=== PATIENT | female | born 1990 | race Caucasian/White ===

== ENCOUNTER 2020-07-11 16:57 | Outpatient (CLI) | payer OTHER, SELFPAY ==
--- NOTE | ~2020-07-11 | XR_ITS ---
EXAMINATION: XR hip RT 2V w AP pelvis INDICATION: Right hip pain TECHNIQUE: AP view of the pelvis and two views of the right hip are obtained. COMPARISON: None available FINDINGS: Bone alignment is normal. There is no fracture. The soft tissues are unremarkable. Surgical changes are noted on the right at L5-S1. IMPRESSION: 1. No acute osseous abnormality. Reviewed, dictated and finalized at location [facility]. ING COORDINATOR
== END 2020-07-11 16:58 | disposition home or self-care (01) ==
PROVIDERS: PCP Physician Assistant; Visit Provider Physician Assistant
DX: M25.559 Pain in unspecified hip (principal)
CPT/HCPCS: 73502

== ENCOUNTER 2020-08-17 06:59 | Outpatient (NON) | payer OTHER, SELFPAY ==
[2020-08-17 22:42] LABS: SARS-CoV-2 RNA PCR Negative
== END 2020-08-17 07:00 ==
LOC: ANHCOVIDDT 06:59
PROVIDERS: PCP Physician Assistant; Visit Provider Physician Assistant
DX: Z20.822 Contact with and (suspected) exposure to COVID-19 (principal); B34.9 Viral infection, unspecified
CPT/HCPCS: C9803; U0003; U0005

== ENCOUNTER 2020-08-30 16:55 | Emergency (ER) | payer OTHER, SELFPAY ==
--- NOTE | ~2020-08-30 | CT_ITS ---
EXAMINATION: CT abdomen pelvis w con DATE: 08/30/2020 19:28 INDICATION: Abdominal pain TECHNIQUE: Computed tomography (CT) of the abdomen and pelvis was performed with 100 cc Omnipaque 350 intravenous contrast. Automated exposure control and iterative reconstruction technique were employe d. Exam dose: 1256.69 mGy-cm total exam DLP. COMPARISON: None. FINDINGS: Lung bases are clear of infiltrate or consolidation. Normal heart size. No pericardial or pleural effusion. The liver, gallbladder, bile ducts, spleen, pancreas, pancreatic duct and adrenal glands and kidneys are unremarkable. No urinary tract calculus or hydroureteronephrosis. Normal caliber of the abdominal aorta. No intraperitoneal or retroperitoneal or pelvic mass lesion or adenopathy or ascites. The urinary bladder, uterus and adnexal areas are unremarkable. Mild colonic diverticulosis; no CT evidence of diverticulitis. No bowel obstruction, bowel wall thick ening, pneumatosis or intraperitoneal free air. Small fat-containing umbilical hernia. Status post posterior surgical spinal fusion on the right at L5-S1. IMPRESSION: Mild colonic diverticulosis Status post posterior surgical spinal fusion at L5-S1 Reviewed, dictated and finalized at [facility]. Reviewed, dictated and finalized at location A. LLITE DISH REPAIRER
[2020-08-30 16:58] VITALS: BP 148/82; PULSE 125; RESP 20; TEMP 36.6; O2SAT 100
--- NOTE | 2020-08-30 17:06 | ED.ABDPAIN ---
HPI - Abdominal Pain General Chief Complaint: Abdominal Pain Stated Complaint: abd pain Time Seen by Provider: 08/30/20 17:04 Source: patient and family Mode of arrival: ambulatory Limitations: no limitations History of Present Illness HPI narrative: 30 years old white female presents with intermittent right upper quadrant pain started 2 weeks ago. Patient Was Made Today quickly and turned quickly and felt a pop at the right upper quadrant. Patient declined any pain medication at this time. Patient denies any fever, chills, nausea, vomiting, diarrhea, constipation, history of COVID-19 infection or exposure to anybody with COVID-19. History of intussusception when she was a baby, hysterectomy. Patient is a smoker, patient drinks occasionally and uses marijuana. Related Data Home Medications Medication Instructions Recorded Confirmed citalopram mg 08/30/20 08/30/20 clonazepam 08/30/20 lisinopril-hydrochlorothiazide tablet 08/30/20 quetiapine 08/30/20 tramadol mg 08/30/20 Allergies Allergy/AdvReac Type Severity Reaction Status Date / Time No Known Allergies Allergy Unknown Verified 08/30/20 17:00 Review of Systems Review of Systems: Narrative: CONSTITUTIONAL: Denies fever, chills, or sweats. EYES: Denies visual changes, redness, or discharge. ENT: Denies rhinorrhea, congestion, sore throat, or otalgia. CARDIOVASCULAR: Denies chest pain, palpitations, or edema. RESPIRATORY: Denies cough or dyspnea. GASTROINTESTINAL: Right upper quadrant pain GENITOURINARY: Denies dysuria or hematuria. SKIN: Denies rash or itching. MUSCULOSKELETAL: Denies back pain, joint pain, or myalgia. NEUROLOGIC: Denies headache, numbness, or weakness. PSYCHIATRIC: Denies anxiety or depression. Exam Narrative: Exam Narrative: General appearance: Well-developed, well-nourished Skin: Normal color Head: Normocephalic, nontraumatic Eyes: Clear conjunctiva ENT: Oropharynx normal, ears normal, nose normal Neck: Supple, nontender Chest and respiratory: Airway patent, no respiratory distress, no accessory muscle use Heart: Regular rate/rhythm Abdomen: Soft, diffuse tenderness to right upper quadrant, positive Brooks sign., no organomegaly, quiet bowel sounds Vascular: Normal peripheral pulses, normal capillary refill. 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 Labs, UA, CT abdomen and pelvis with IV contrast, IV fluid, ordered. Further plan to follow Differential Diagnosis Differential diagnosis: Likely abdominal pain, calculus of kidney, constipation, diverticulitis and small bowel obstruction Imaging Data Radiologist's impression: Impressions Abdomen/Pelvis CT 08/30/20 19:30 IMPRESSION: Mild colonic diverticulosis Status post posterior surgical spinal fusion at L5-S1 Critical Care Time Critical Care Time Critical Care Time: Yes Total Critical Care Time: 30 Discharge Plan Discharge Clinical Impression: Abdominal pain Qualifiers: Abdominal location: right upper
[2020-08-30 17:42] LABS: Basophils Absolute Auto 0.1 K/mm3 (0.0-0.1); Basophils Percent Auto 0.7 % (0.2-1.2); Eosinophils Absolute Auto 0.1 K/mm3 (0-0.3); Eosinophils Percent Auto 0.7 % (0-4.4); Hematocrit 45.1 % (37.0-47.0); Immature Granulocyte Absolute 0.02 K/mm3 (0.00-0.031); Immature Granulocyte Percent A 0.2 % (0-0.5); Lymphocytes Absolute Auto 3.46 K/mm3 (0.9-3.2); Lymphocytes Percent Auto 31.1 % (18.3-44.2); Mean Corpuscular HGB Conc 33.3 g/dl (32-36); Mean Corpuscular Hemoglobin 30.5 pg (26-34); Mean Corpuscular Volume 91.9 fl (80-100); Mean Platelet Volume 11.6 fl (7.4-10.4); Monocytes Absolute Auto 0.6 K/mm3 (0.1-0.6); Monocytes Percent Auto 5.2 % (2.6-8.5); Neutrophils Absolute Auto 6.9 K/mm3 (1.3-6.7); Neutrophils Percent Auto 62.1 % (45.5-73.1); Platelet Count Result 209 k/mm3 (150-375); Red Blood Count 4.91 M/mm3 (4.2-5.4); Red Cell Distribution Width 13.1 % (11.5-14.5); White Blood Count 11.1 K/mm3 (4.5-10.0)
[2020-08-30] MEDS: SODIUM CHLORIDE 0.9% IV 1,000 ML 999 ML IV CONT (17:44)
[2020-08-30 17:47] LABS: Add Urine Microscopic? NO; Appearance Urine Clear (Clear); Bilirubin Urine Negative (Negative); Blood Urine Negative (Negative); Color Urine Yellow (Yellow); Glucose Urine UA Negative (Negative); Ketones Urine Negative (Negative); Leukocyte Esterase Ur Negative LEU/UL (Negative); Nitrate Urine Negative (Negative); Protein Urine Negative (Negative); Specific Grav Ur 1.015 (1.001-1.035); Urobilinogen Urine Negative mg/dL (<2.0)
[2020-08-30 17:54] LABS: Alanine Aminotransferase 24 U/L (4-35); Albumin Level 4.5 g/dL (3.5-5.1); Alkaline Phosphatase 68 U/L (38-126); Anion Gap 8 mmol/L (8-16); Aspartate Amino Transferase 26 U/L (14-36); Bilirubin,Total 0.4 mg/dL (0.2-1.3); Blood Urea Nitrogen 11 mg/dL (7-17); Calcium 9.4 mg/dL (8.4-10.2); Carbon Dioxide 21 mmol/L (22-30); Chloride 109 mmol/L (98-107); Estimated CRCL calculation 142 ml/min; Estimated Glomerular Filt Rate > 60; Glucose 121 mg/dL (65-105); Lipase 234 U/L (23-300); Potassium 3.8 mmol/L (3.4-5.0); Sodium 138 mmol/L (137-145)
[2020-08-30 20:11] VITALS: BP 147/86; PULSE 88; RESP 16; O2SAT 99
== END 2020-08-30 20:11 | disposition home or self-care (01) ==
PROVIDERS: Emergency Provider Emergency Medicine; PCP Physician Assistant
DX: R10.11 Right upper quadrant pain (principal); K57.90 Diverticulosis of intestine, part unspecified, without perforation or abscess without bleeding; Z98.1 Arthrodesis status
CPT/HCPCS: 36415; 74177; 80053; 81003; 83690; 85025; 96360; 96361; 99284; J7030; Q9967

== ENCOUNTER → 2020-12-11 06:55 | Outpatient (CLI) | payer OTHER, SELFPAY ==
[2020-12-11 18:55] LABS: SARS-CoV-2 RNA PCR Negative
== END ==
PROVIDERS: PCP Physician Assistant; Visit Provider Physician Assistant
DX: R68.89 Other general symptoms and signs (principal); Z20.822 Contact with and (suspected) exposure to COVID-19
CPT/HCPCS: C9803; U0003; U0005